=== PATIENT | female | born 1980 | race African-American/Black ===

== ENCOUNTER 2018-01-14 08:37 | Outpatient (CLI) | payer OTHER ==
--- NOTE | 2018-01-14 10:33 | RAD ---
LEFT KNEE FOUR VIEWS: 01/14/2018 FINDINGS: No fracture, joint space narrowing, or joint effusion is seen. The articular surfaces are smooth. IMPRESSION: No significant finding. POS: HOME
== END 2018-01-14 08:38 | disposition home or self-care (01) ==
LOC: BURRAD 08:37
PROVIDERS: ATTEND Family Medicine
DX: M25.562 Pain in left knee (principal)

== ENCOUNTER 2018-12-19 15:26 | Emergency (ER) | payer OTHER ==
[2018-12-19 15:51] LABS: Bilirubin Negative (Negative); Blood, Urine Trace (Negative); Clarity Clear (Clear); Glucose, Urine (Dipstick) Negative (Negative); Leukocyte Negative (Negative); Nitrite Negative (Negative); Protein, Urine (Dipstick) Negative (Neg-Trace); Urobilinogen 0.2 mg/dL (Less than 2)
[2018-12-19 15:55] LABS: Bacteria/HPF None Seen HPF (None Seen); Broad Cast None Seen LPF (None Seen); Calcium Oxalate Crystals None Seen HPF (None Seen); Cellular Cast None Seen LPF (None Seen); Epithelial Cast None Seen LPF (None Seen); Fatty Cast None Seen LPF (None Seen); Mucous/LPF None Seen LPF (<2+); Other Casts None Seen LPF (None Seen); Oval Fat Bodies/HPF None Seen HPF (None Seen); RBC/HPF 0-3 HPF (0-3); Red Blood Cell Cast None Seen LPF (None Seen); Renal Epithelial None Seen HPF (None Seen); Sperm/HPF None Seen HPF (None Seen); Squamous Epithelial None Seen HPF (0-3); Transitional Epithelial None Seen HPF (None Seen); Trichomonas/HPF None Seen HPF (None Seen); Triple Phosphate Crystal None Seen HPF (None Seen); Unclassified Crystals None Seen HPF (None Seen); WBC/HPF None Seen HPF (0-3); Waxy Cast None Seen LPF (None Seen); White Blood Cell Cast None Seen LPF (None Seen); Yeast-Budding None Seen HPF (None Seen); Yeast-Hyphae None Seen HPF (None Seen)
[2018-12-19] MEDS ORDERED: Phenazopyridine HCl 97.5 MG TABLET ONE (15:57)
[2018-12-19] MEDS ORDERED: Acetaminophen 500 MG TAB ONE (15:58)
--- NOTE | 2018-12-19 16:42 | CT ---
CT Stone Protocol 12/19/2018 4:07 PM HISTORY: Low back pain. COMPARISON: None. Technique: Multiple contiguous axial CT images are obtained through the abdomen and pelvis without IV contrast. Coronal reformats are provided. FINDINGS: This examination is limited for the evaluation of solid organs and vascular structures due to the lac k of intravenous contrast. Lower Chest: Lung bases are clear. There is mild elevation of the left hemidiaphragm. Abdomen: Liver: within normal limits. Gallbladder: A punctate calcification is seen in a decompressed gallbladder. Pancreas: within normal limits. Spleen: within normal limits. Adrenals: within normal limits. Kidneys: No renal calculi are visualized, and there is no evidence of hydronephrosis. Ureters: No ureteral calculus is seen.. Pelvis: Urinary bladder: Decompressed but otherwise grossly within normal limits. Reproductive Organs: Uterus is not visualized likely due to prior hysterectomy. Lymph Nodes: No enlarged lymph nodes. Bowel: Normal caliber. Appendix: The appendix is normal in caliber. Peritoneum: No free fluid, free air, or fluid collection. Retroperitoneum: within normal limits. Vessels: Minimal vascular calcifications are seen in the abdominal aorta and right common iliac arter y.. Abdominal Wall: within normal limits. Bones: within normal limits. IMPRESSION: 1. No renal or ureteral calculi are seen bilaterally. 2. Cholelithiasis. 3. Hysterectomy.
== END 2018-12-19 16:52 | disposition home or self-care (01) ==
LOC: BURERS 15:26
DX: R30.0 Dysuria (principal); M54.5 Low back pain
CPT/HCPCS: 74176; 81003; 81015; 87086

== ENCOUNTER 2019-11-22 10:50 | Emergency (ER) | payer OTHER ==
[2019-11-23 13:55] LABS: SARS-CoV-2 MS2 Positive; SARS-CoV-2 N Gene Negative; SARS-CoV-2 S Gene Negative; SARS-CoV-2 orf1ab Negative
== END 2019-11-22 11:30 | disposition home or self-care (01) ==
LOC: BURERS 10:50
DX: J06.9 Acute upper respiratory infection, unspecified (principal); F41.9 Anxiety disorder, unspecified; F32.9 Major depressive disorder, single episode, unspecified; Z20.828 Contact with and (suspected) exposure to other viral communicable diseases
CPT/HCPCS: 87635; 99283; U0003

== ENCOUNTER 2020-03-06 09:01 | Emergency (ER) | payer OTHER ==
[2020-03-06] MEDS ORDERED: Mag-Al Plus 1200 MG/1200 MG/120 MG/30 ML UDCUP ONE (09:32)
[2020-03-06] MEDS ORDERED: Lidocaine Viscous Sol 2% 15 ml UD Cup ONE (09:32)
[2020-03-06 09:34] LABS: #Eosinphils 0.1 thou/uL (0.0-0.7); #Lymphocytes 3.1 thou/uL (1.20-3.40); #Monocytes 0.7 thou/uL (0.11-0.59); #Neutrophils 4.9 thou/uL (1.40-6.50); %Basophils 0.5 % (0.0-1.0); %Eosinophils 1.6 % (0.0-10.0); %Lymphocytes 34.6 % (21.0-51.0); %Neutrophils 55.2 % (42.0-75.0); Hemoglobin 12.3 g/dL (12.0-16.0); Mean Corpuscular HGB CONC 30.5 g/dL (32.0-36.0); Mean Corpuscular Hemoglobin 29.6 pg (27.0-31.0); Mean Corpuscular Volume 97.1 fL (78.0-98.0); Mean Platelet Volume 6.5 fL (7.4-10.4); Platelet Count 291 thou/uL (130-400); RBC Distribution Width 12.6 % (11.5-14.5); Red Blood Cell (RBC) Count 4.15 mill/uL (4.20-5.40); White Blood Cell (WBC) Count 8.9 thou/uL (4.8-10.8)
[2020-03-06 09:50] LABS: BHCG - Serum Negative (NEGATIVE); Pregs Control Background? CLEAR/WHITE (CLR/WHITE); Pregs Control Bar Appear? YES (CONTROL BAR)
[2020-03-06 09:52] LABS: ALT (SGPT) 17 U/L (8-55); AST (SGOT) 10 U/L (5-34); Albumin 4.3 g/dL (3.5-5.0); Alkaline Phosphatase 63 U/L (40-110); Anion Gap 16 mmol/L (10-20); BUN (Urea Nitrogen) 8 mg/dL (7.0-18.7); Bilirubin, Total 0.4 mg/dL (0.2-1.2); Calc. Creatinine Clearance 0 mL/min (70-130); Calcium 9.3 mg/dL (7.8-10.44); Carbon Dioxide 29 mmol/L (22-29); Chloride 99 mmol/L (98-107); Estimated GFR-MDRD Greater than 90; Globulin 3.1 g/dL (2.4-3.5); Glucose 92 mg/dL (70-105); Lipase 17 U/L (8-78); Potassium 3.9 mmol/L (3.5-5.1); Protein, Total 7.4 g/dL (6.0-8.3); Sodium 140 mmol/L (136-145)
[2020-03-06] MEDS ORDERED: Famotidine In NaCl 20 mg/50 ml Premix Bag ONE (10:05)
== END 2020-03-06 11:55 | disposition home or self-care (01) ==
LOC: BURERS 09:01
DX: K29.70 Gastritis, unspecified, without bleeding (principal); Z87.891 Personal history of nicotine dependence
CPT/HCPCS: 80053; 83690; 84484; 84703; 85025; 93005; 96372; 96374; J0500

== ENCOUNTER 2021-09-21 16:08 | Outpatient (CLI) | payer OTHER | END 2021-09-21 16:09 | disposition home or self-care (01) | LOC: BURRAD 16:08 | PROVIDERS: ATTEND Family Medicine | DX: J42 Unspecified chronic bronchitis (principal) | CPT/HCPCS: 71046 ==

== ENCOUNTER 2021-10-29 04:32 | Emergency (ER) | payer OTHER ==
[2021-10-29] MEDS ORDERED: Doxycycline 100 MG CAP PO ONE (04:33)
[2021-10-29] MEDS ORDERED: Dexamethasone 4 MG TAB ONE (04:51)
[2021-10-29] MEDS ORDERED: traMADol HCl 50 MG TAB ONE (04:51)
== END 2021-10-29 04:58 | disposition home or self-care (01) ==
LOC: BURERS 04:32
DX: H66.92 Otitis media, unspecified, left ear (principal); Z87.891 Personal history of nicotine dependence; Z79.899 Other long term (current) drug therapy
CPT/HCPCS: 99283; J8540

== ENCOUNTER 2022-05-10 08:22 | Outpatient (CLI) | payer OTHER | END 2022-05-10 08:23 | disposition home or self-care (01) | LOC: BURCT 08:22 | PROVIDERS: ATTEND Family Medicine | DX: S00.93XA Contusion of unspecified part of head, initial encounter (principal); M25.561 Pain in right knee; M25.562 Pain in left knee; M25.511 Pain in right shoulder; M25.512 Pain in left shoulder; N64.89 Other specified disorders of breast; M79.642 Pain in left hand | CPT/HCPCS: 70450; 71046 ==

== ENCOUNTER 2023-01-09 00:20 | Emergency (ER) | payer OTHER | END 2023-01-09 00:56 | disposition home or self-care (01) | LOC: BURERS 00:20 | DX: M54.2 Cervicalgia (principal); E66.9 Obesity, unspecified; E11.9 Type 2 diabetes mellitus without complications; Z87.891 Personal history of nicotine dependence | CPT/HCPCS: 99283 ==

== ENCOUNTER 2023-07-11 14:48 | Emergency (ER) | payer OTHER ==
[2023-07-11 15:46] LABS: #Eosinphils 0.2 thou/uL (0.0-0.7); #Lymphocytes 2.8 thou/uL (1.20-3.40); #Monocytes 0.5 thou/uL (0.11-0.59); #Neutrophils 3.7 thou/uL (1.40-6.50); %Basophils 0.6 % (0.0-1.0); %Eosinophils 2.6 % (0.0-10.0); %Lymphocytes 38.5 % (21.0-51.0); %Monocytes 6.9 % (0.0-10.0); %Neutrophils 51.5 % (42.0-75.0); Hematocrit 36.9 % (36.0-47.0); Hemoglobin 12.3 g/dL (12.0-16.0); Mean Corpuscular HGB CONC 33.4 g/dL (32.0-36.0); Mean Corpuscular Hemoglobin 30.1 pg (27.0-31.0); Mean Corpuscular Volume 90.3 fl (78.0-98.0); Mean Platelet Volume 5.9 fL (7.4-10.4); Platelet Count 321 10x3/uL (130-400); RBC Distribution Width 11.2 % (11.5-14.5); Red Blood Cell (RBC) Count 4.09 mill/uL (4.20-5.40); White Blood Cell (WBC) Count 7.2 10x3/uL (4.8-10.8)
[2023-07-11 15:59] LABS: Bilirubin Negative (Negative); Blood, Urine Trace (Negative); Clarity Clear (Clear); Glucose, Urine (Dipstick) Negative (Negative); Ketone, Urine Negative (Negative); Leukocyte Negative (Negative); Nitrite Negative (Negative); Protein, Urine (Dipstick) Negative (Neg-Trace); Urobilinogen 0.2 mg/dL (Less than 2); pH, Urine 6.5 (5.0-9.0)
[2023-07-11 16:04] LABS: ALT (SGPT) 18 U/L (8-55); AST (SGOT) 12 U/L (5-34); Albumin 4.3 g/dL (3.5-5.0); Alkaline Phosphatase 85 U/L (40-110); Anion Gap 15 mmol/L (10-20); BUN (Urea Nitrogen) 10 mg/dL (7.0-18.7); Bilirubin, Total 0.2 mg/dL (0.2-1.2); Calc. Creatinine Clearance 0 mL/min (70-130); Calcium 9.6 mg/dL (7.8-10.44); Carbon Dioxide 28 mmol/L (22-29); Chloride 103 mmol/L (98-107); Estimated GFR 101; Globulin 3.1 g/dL (2.4-3.5); Glucose 125 mg/dL (70-105); Potassium 3.8 mmol/L (3.5-5.1); Protein, Total 7.4 g/dL (6.0-8.3); Sodium 142 mmol/L (136-145)
[2023-07-11 16:07] LABS: Bacteria/HPF Rare-Few HPF (None Seen); CAUTI Indications for Culture Dysuria,urgency,freq; RBC/HPF 0-3 HPF (0-3); Squamous Epithelial 0-3 HPF (0-3); WBC/HPF None Seen HPF (0-3)
[2023-07-11 16:10] LABS: Urine Culture Reflex No No
[2023-07-11 17:24] LABS: Pregnancy Test - Urine (BHCG) Negative (Negative); Pregu Control Background? CLEAR/WHITE (CLR/WHITE); Pregu Control Bar Appear? YES (CONTROL BAR)
== END 2023-07-11 17:30 | disposition home or self-care (01) ==
LOC: BURERS 14:48
DX: R53.1 Weakness (principal); E78.00 Pure hypercholesterolemia, unspecified; F17.290 Nicotine dependence, other tobacco product, uncomplicated
CPT/HCPCS: 36415; 80053; 81001; 81025; 84443; 85025; 99284

== ENCOUNTER 2023-07-20 02:18 | Emergency (ER) | payer OTHER ==
[2023-07-20 03:29] LABS: #Eosinphils 0.2 thou/uL (0.0-0.7); #Lymphocytes 2.5 thou/uL (1.20-3.40); #Monocytes 0.6 thou/uL (0.11-0.59); #Neutrophils 4.1 thou/uL (1.40-6.50); %Basophils 0.6 % (0.0-1.0); %Lymphocytes 33.2 % (21.0-51.0); %Monocytes 8.6 % (0.0-10.0); %Neutrophils 54.6 % (42.0-75.0); Hemoglobin 13.1 g/dL (12.0-16.0); Mean Corpuscular HGB CONC 34.5 g/dL (32.0-36.0); Mean Corpuscular Hemoglobin 30.9 pg (27.0-31.0); Mean Corpuscular Volume 89.6 fl (78.0-98.0); Mean Platelet Volume 6.2 fL (7.4-10.4); Platelet Count 306 10x3/uL (130-400); RBC Distribution Width 11.1 % (11.5-14.5); Red Blood Cell (RBC) Count 4.24 mill/uL (4.20-5.40); White Blood Cell (WBC) Count 7.4 10x3/uL (4.8-10.8)
[2023-07-20 03:45] LABS: ALT (SGPT) 16 U/L (8-55); AST (SGOT) 11 U/L (5-34); Albumin 4.3 g/dL (3.5-5.0); Alkaline Phosphatase 89 U/L (40-110); Anion Gap 14 mmol/L (10-20); BUN (Urea Nitrogen) 9 mg/dL (7.0-18.7); Bilirubin, Total 0.5 mg/dL (0.2-1.2); Calc. Creatinine Clearance 0 mL/min (70-130); Calcium 9.7 mg/dL (7.8-10.44); Carbon Dioxide 27 mmol/L (22-29); Chloride 102 mmol/L (98-107); Estimated GFR 95; Globulin 3.1 g/dL (2.4-3.5); Glucose 111 mg/dL (70-105); Potassium 4.2 mmol/L (3.5-5.1); Protein, Total 7.4 g/dL (6.0-8.3); Sodium 139 mmol/L (136-145)
[2023-07-20 04:22] LABS: Lipase 23 U/L (8-78)
== END 2023-07-20 04:30 | disposition home or self-care (01) ==
LOC: BURERS 02:18
DX: R10.9 Unspecified abdominal pain (principal); E11.9 Type 2 diabetes mellitus without complications; F17.290 Nicotine dependence, other tobacco product, uncomplicated
CPT/HCPCS: 36415; 74176; 80053; 83690; 85025

== ENCOUNTER 2023-11-14 13:48 | Outpatient (CLI) | payer OTHER | END 2023-11-14 13:49 | disposition home or self-care (01) | LOC: BURRAD 13:48 | PROVIDERS: ATTEND Family Medicine | DX: S39.012A Strain of muscle, fascia and tendon of lower back, initial encounter (principal); M47.816 Spondylosis without myelopathy or radiculopathy, lumbar region; M46.06 Spinal enthesopathy, lumbar region | CPT/HCPCS: 72110 ==

== ENCOUNTER 2024-04-13 16:54 | Emergency (ER) | payer OTHER ==
[2024-04-13] MEDS ORDERED: Ketorolac Tromethamine 30 MG (1 mL) VIAL ONE (17:11)
== END 2024-04-13 17:20 | disposition home or self-care (01) ==
LOC: BURERS 16:54
DX: J02.9 Acute pharyngitis, unspecified (principal); E11.9 Type 2 diabetes mellitus without complications; F17.290 Nicotine dependence, other tobacco product, uncomplicated
CPT/HCPCS: 96372; 99283; J1885